=== PATIENT | female | born 1945 | race Caucasian/White ===

== ENCOUNTER → 2017-11-05 | Outpatient (CLI) | payer SELFPAY ==
[2017-11-05 12:29] LABS: BASO % 0.4 % (0.0-2.0); EOS # 0.1 (0.0-0.7); EOS % 2.6 % (0-4.0); GRAN # 3.3 (1.4-6.5); GRAN % 66.2 % (42.2-75.2); HEMATOCRIT 39.6 % (37.0-47.0); HEMOGLOBIN 12.6 g/dl (12.5-16.0); LYMPH % 19.7 % (20.0-51.0); MEAN CELL VOLUME 95 fl (80.0-100.0); MEAN CORPUSCULAR HEMOGLOBIN 30 pg (27.0-31.0); MEAN CORPUSCULAR HGB CONC 32 g/dl (33.0-37.0); MEAN PLATELET VOLUME 9.9 fl (7.4-10.4); MONO # 0.5 (0.1-0.6); MONO % 10.7 % (1.7-9.3); PLATELET COUNT 206 K/mm3 (130-400); RED BLOOD COUNT 4.17 M/mm3 (4.10-5.30)
[2017-11-05 12:45] LABS: ALBUMIN 4.2 gm/dL (3.5-5.0); BILIRUBIN,TOTAL 0.5 mg/dL (0.0-1.0); CALCIUM 9.2 mg/dL (8.4-10.2); CHOLESTEROL RISK RATIO 3.5; CREATININE, serum 1.06 mg/dL (0.52-1.25); POTASSIUM 4.4 mmol/L (3.4-5.0); TOTAL PROTEIN 6.8 gm/dL (6.4-8.2)
[2017-11-05 13:14] LABS: TSH w REFLEX 1.56 uIU/mL (0.465-4.680)
== END ==
LOC: COL.LAB 11:33
PROVIDERS: Family Medicine
DX: E11.9 Type 2 diabetes mellitus without complications (principal); F32.9 Major depressive disorder, single episode, unspecified; R41.3 Other amnesia

== ENCOUNTER → 2018-01-09 | Outpatient (CLI) | payer MEDICARE ==
[2018-01-09 14:42] LABS: BASO % 0.6 % (0.0-2.0); EOS # 0.2 (0.0-0.7); EOS % 2.7 % (0-4.0); GRAN # 4.5 (1.4-6.5); GRAN % 70.9 % (42.2-75.2); HEMATOCRIT 38.6 % (37.0-47.0); HEMOGLOBIN 12.1 g/dl (12.5-16.0); LYMPH % 15.2 % (20.0-51.0); MEAN CELL VOLUME 95 fl (80.0-100.0); MEAN CORPUSCULAR HEMOGLOBIN 30 pg (27.0-31.0); MEAN CORPUSCULAR HGB CONC 31 g/dl (33.0-37.0); MEAN PLATELET VOLUME 9.5 fl (7.4-10.4); MONO # 0.6 (0.1-0.6); MONO % 10.1 % (1.7-9.3); PLATELET COUNT 285 K/mm3 (130-400); RED BLOOD COUNT 4.06 M/mm3 (4.10-5.30); REDCELL DISTRIBUTION WIDTH-CV 13.1 % (11.5-14.5)
[2018-01-09 14:48] LABS: ALBUMIN 3.7 gm/dL (3.5-5.0); BILIRUBIN,TOTAL 0.6 mg/dL (0.0-1.0); C-REACTIVE PROTEIN 0.7 mg/dL (0.0-0.9); CALCIUM 9.2 mg/dL (8.4-10.2); CREATININE, serum 1.01 mg/dL (0.52-1.25); POTASSIUM 4.2 mmol/L (3.4-5.0); TOTAL PROTEIN 6.5 gm/dL (6.4-8.2)
[2018-01-09 15:18] LABS: ERYTHROCYTE SEDIMENTATION RATE 23 mm/hr (0-30)
== END ==
LOC: COL.LAB 12:21
PROVIDERS: Family Medicine
DX: K50.90 Crohn's disease, unspecified, without complications (principal)

== ENCOUNTER → 2018-06-14 | Outpatient (CLI) | payer MEDICARE ==
[2018-06-14 16:24] LABS: ALBUMIN 3.6 gm/dL (3.5-5.0); BILIRUBIN,TOTAL 0.5 mg/dL (0.0-1.0); CALCIUM 9.1 mg/dL (8.4-10.2); CREATININE, serum 0.85 mg/dL (0.52-1.25); POTASSIUM 4.2 mmol/L (3.4-5.0); TOTAL PROTEIN 6.3 gm/dL (6.4-8.2)
== END ==
LOC: COL.LAB 13:31
PROVIDERS: Family Medicine
DX: R60.0 Localized edema (principal)

== ENCOUNTER → 2018-06-24 | Outpatient (CLI) | payer MEDICARE | LOC: COL.VAS 10:04 | DX: I08.1 Rheumatic disorders of both mitral and tricuspid valves (principal); R60.0 Localized edema ==

== ENCOUNTER 2018-08-27 12:18 | Day surgery (SDC) | payer MEDICARE ==
[~2018-08-27] VITALS: Ht 170.2 cm; Wt 74.1 kg
[2018-08-27] MEDS ORDERED: HUMALOG PEN100 U/ML SQ (12:52)
[2018-08-27] MEDS ORDERED: NEURONTIN100 MG/CAP PO (12:52)
[2018-08-27] MEDS ORDERED: LANTUS SOLOS100 U/ML SQ (12:52)
[2018-08-27] MEDS ORDERED: PRINIVIL20 MG PO (12:53)
[2018-08-27] MEDS ORDERED: ONE DAILY1 TA1 PO (12:53)
[2018-08-27] MEDS ORDERED: ARAVA 20MG TABL20 MG PO (12:54)
[2018-08-27] MEDS ORDERED: NEXIUM 40MG40 MG PO (12:55)
[2018-08-27] MEDS ORDERED: LIPITOR 40MG TA40 MG PO (12:56)
[2018-08-27] MEDS ORDERED: TYLENOL PM EXTR1 TA1 PO (12:56)
[2018-08-27] MEDS ORDERED: SINGULAIR 110 MG/TAB PO (12:57)
[2018-08-27] MEDS ORDERED: LEXAPRO20 MG PO (12:57)
[2018-08-27] MEDS ORDERED: PLAVIX 75MG TAB75 MG PO (12:58)
[2018-08-27] MEDS ORDERED: PROTONIX 40MG T40 MG PO (12:58)
[2018-08-27] MEDS ORDERED: ABILIFY5 MG PO (12:59)
[2018-08-27] MEDS ORDERED: MELATONIN5 M1 PO (13:00)
[2018-08-27] MEDS ORDERED: VENTOLIN0.09 MG IH (13:09)
[2018-08-27] MEDS ORDERED: OXYGEN MC (13:10)
[2018-08-27 13:15] VITALS: BP 164/90; PULSE 98; TEMP 98.4
[2018-08-27] MEDS ORDERED: QUESTRAN LI4 GM/5 GM PO (13:44)
[2018-08-27 13:50] VITALS: BP 143/75; PULSE 115; TEMP 98.3
[2018-08-27 14:05] VITALS: BP 141/76; PULSE 94
[2018-08-27 14:20] VITALS: BP 155/82; PULSE 93
== END 2018-08-27 14:35 | disposition home or self-care (01) ==
LOC: SDCO 12:18
DX: K52.831 Collagenous colitis (principal); K64.0 First degree hemorrhoids; R19.7 Diarrhea, unspecified; M06.9 Rheumatoid arthritis, unspecified; I10 Essential (primary) hypertension; E78.5 Hyperlipidemia, unspecified; I25.10 Atherosclerotic heart disease of native coronary artery without angina pectoris; J44.9 Chronic obstructive pulmonary disease, unspecified; E11.40 Type 2 diabetes mellitus with diabetic neuropathy, unspecified; K21.9 Gastro-esophageal reflux disease without esophagitis; Z90.710 Acquired absence of both cervix and uterus; Z96.653 Presence of artificial knee joint, bilateral; Z79.4 Long term (current) use of insulin; Z88.2 Allergy status to sulfonamides; Z88.0 Allergy status to penicillin; Z88.1 Allergy status to other antibiotic agents; Z88.6 Allergy status to analgesic agent
CPT/HCPCS: J2704; J7030